=== PATIENT | female | born 1955 | race Caucasian/White ===

== ENCOUNTER 2017-02-04 05:32 | Outpatient (CLI) | payer BC ==
[~2017-02-04 05:32] MED LIST: ALEVE220 MG PO; CALCIUM 600+D T1 TA1 PO; CEREFOLIN TAB1 TAB PO; CHILDREN'S ASPI81 MG PO; HYDROCODONE-APA1 TAB PO; POTASSIUM CHLO10 ME1 PO; VITAMIN C1000 MG PO
[2017-02-04] MEDS ORDERED: VITAMIN D250000 UNIT (07:08)
[2017-02-04] MEDS ORDERED: NORVASC10 MG PO (07:08)
[2017-02-04] MEDS ORDERED: HYDROCHLOROTH12.5 M1 (07:08)
[2017-02-04] MEDS ORDERED: ACETAMINOPHEN325 MG PO (07:09)
[2017-02-04] MEDS ORDERED: PEPCID40 MG PO (07:09)
[2017-02-04] MEDS ORDERED: LIDOCAINE-PRILOC5 GM TP (07:10)
[2017-02-04] MEDS ORDERED: ESTRACE 0.0142.5 GM (07:10)
[2017-02-04] MEDS ORDERED: MIRALAX17 GM PO (07:11)
[2017-02-04] MEDS ORDERED: ALENDRONATE SOD70 MG PO (07:11)
[2017-02-04 07:23] VITALS: BP 130/75; BMI 19.8
[2017-02-04 07:55] LABS: BASOPHILS 0.1 % (0-2); EOSINOPHILS 0.6 % (0-7); HEMATOCRIT 34.5 % (36.0-48.0); HEMOGLOBIN 11.7 g/dL (12-16); IMMATURE GRANULOCYTES 0.3 % (0-5); LYMPHOCYTES 13.9 % (15-50); MCH 29.5 pg (26.0-34.0); MCHC 33.9 g/dL (31.0-37.0); MCV 87.1 fL (80.0-100.0); MEAN PLATELET VOLUME 8.9 fL (7.4-10.4); NEUTROPHILS 69.1 % (40-80); RBC 3.96 10x6/uL (4.00-5.40); RDW 13.5 % (11.5-14.5); WBC 7.1 10x3/uL (4.8-10.8)
[2017-02-04 08:05] LABS: ANION GAP 14.6 mmol/L (8-16); CALCIUM 9.3 mg/dL (8.5-10.1); CARBON DIOXIDE 25.8 mmol/L (21.0-32.0); CREATININE - SERUM 1.1 mg/dL (0.6-1.3); POTASSIUM - SERUM 3.4 mmol/L (3.5-5.1)
[2017-02-04 08:06] LABS: APTT 33.5 SECONDS (22.8-39.4); INR 0.95 (0.85-1.17); PROTIME 12.5 SECONDS (11.6-15.0)
[2017-02-04 08:09] LABS: PLATELET COUNT 277 10x3/uL (130-400)
--- NOTE | 2017-02-04 10:50 | NUR ---
VS TAKEN AND PLACED ON POST OP SHEET
--- NOTE | 2017-02-04 14:40 | NUR ---
1315 IV DC WITH CATHER TIP INTACT
== END 2017-02-04 13:30 | disposition home or self-care (01) ==
LOC: D.OPS 05:32 → D.CT 08:00 → D.SP 08:00 → D.OPS 08:00 → D.SP 09:00 → D.CT 09:00 → D.SP 10:00 → D.OPS 13:30
PROVIDERS: Specialist
DX: C34.2 Malignant neoplasm of middle lobe, bronchus or lung (principal); I10 Essential (primary) hypertension; K21.9 Gastro-esophageal reflux disease without esophagitis; K76.9 Liver disease, unspecified; C18.9 Malignant neoplasm of colon, unspecified; Z01.812 Encounter for preprocedural laboratory examination